=== PATIENT | female | born 1970 | race Caucasian/White ===

== ENCOUNTER 2018-10-08 14:25 | Emergency (ER) | payer MEDICAID ==
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
[2018-10-08] MEDS ORDERED: Ibuprofen 600 MG Tab PO ONE (17:30)
== END 2018-10-08 19:51 | disposition other institution (70) ==
LOC: JP.ED 14:25
DX: F10.120 Alcohol abuse with intoxication, uncomplicated (principal); J45.909 Unspecified asthma, uncomplicated; Z77.22 Contact with and (suspected) exposure to environmental tobacco smoke (acute) (chronic); Y90.8 Blood alcohol level of 240 mg/100 ml or more
CPT/HCPCS: 36415; 80305; 81025; 99285; A9270; G0480

== ENCOUNTER 2018-11-12 03:06 | Emergency (ER) | payer MEDICAID ==
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
== END 2018-11-12 03:51 ==
LOC: JP.ED 03:06
DX: S09.90XA Unspecified injury of head, initial encounter (principal); T50.905A Adverse effect of unspecified drugs, medicaments and biological substances, initial encounter; F41.9 Anxiety disorder, unspecified; F32.9 Major depressive disorder, single episode, unspecified; Z79.899 Other long term (current) drug therapy; Y04.8XXA Assault by other bodily force, initial encounter
CPT/HCPCS: 80305-QW; 99283